=== PATIENT | male | born 2000 | race Caucasian/White ===

== ENCOUNTER 2021-02-28 15:40 | Emergency (ER) | payer OTHER ==
[2021-02-28 17:42] LABS: HEMOGLOBIN 15.5 gm/dl (14.0-17.5); RED BLOOD COUNT 4.93 M/UL (4.20-5.50); WHITE BLOOD COUNT 9.2 K/UL (4.5-11.0)
[2021-02-28 18:09] LABS: BUN/CREATININE RATIO 5 (0-10)
[2021-02-28] MEDS ORDERED: CYCLOBENZAPRINE5 MG PO (18:51)
[2021-02-28] MEDS ORDERED: NAPROSYN500 MG PO (18:51)
== END 2021-02-28 19:10 | disposition home or self-care (01) ==
LOC: ER1 15:40
PROVIDERS: Physician Assistant
DX: R55 Syncope and collapse (principal); S09.90XA Unspecified injury of head, initial encounter; S16.1XXA Strain of muscle, fascia and tendon at neck level, initial encounter; S29.012A Strain of muscle and tendon of back wall of thorax, initial encounter; S46.911A Strain of unspecified muscle, fascia and tendon at shoulder and upper arm level, right arm, initial encounter; V49.60XA Unspecified car occupant injured in collision with unspecified motor vehicles in traffic accident, initial encounter; Y92.410 Unspecified street and highway as the place of occurrence of the external cause; Y99.9 Unspecified external cause status
CPT/HCPCS: 70450; 71046; 72072; 72125; 73030; 80053; 82550; 82553; 83874; 84484; 85025; 93005; 99284